=== PATIENT | female | born 1985 | race Caucasian/White ===

== ENCOUNTER 2022-06-04 09:03 | Outpatient (CLI) | payer BC, SELFPAY ==
--- NOTE | 2022-06-04 08:45 | CRLHL7_ITS ---
For Patients: As a result of the Cures Act, medical imaging exams and procedure reports are released immediately into your electronic medical record. You may view this report before your referring provider. If you have questions, please contact your health care provider. BILATERAL DIAGNOSTIC DIGITAL MAMMOGRAM WITH TOMOSYNTHESIS AND COMPUTER-AIDED DETECTION, 06/04/2022 LEFT BREAST ULTRASOUND, 06/04/2022 CLINICAL HISTORY: LEFT breast pain. COMPARISON: None TECHNIQUE: Digital BILATERAL mammogram in four projections with computer-aided detection and tomosynthesis. Real-time ultrasound imaging of LEFT breast with imaging documentation. BREAST COMPOSITION: The breasts are extremely dense, which lowers the sensitivity of mammography. FINDINGS: 3D CC/MLO mammogram submitted bilaterally. Normal fibroglandular tissue without architectural distortion or suspicious mass. No suspicious calcifications or adenopathy. Targeted LEFT breast ultrasound performed upper outer quadrant 12-3 o`clock 4 cm from the nipple. Normal dense breast tissue is present. No fibrocystic change or solid mass. IMPRESSION: Normal bilateral mammograms in normal targeted LEFT breast ultrasound. No evidence of malignancy. RECOMMENDATIONS: Clinical follow-up and age-appropriate screening mammography. BI-RADS CATEGORY 2. Benign Results and recommendations discussed with the patient. Dictated by Abhi Zuniga MD @ 06/04/2022 9:57:02 AM CRL:amrit RD/Dictated by: Abhi Zuniga MD @ 06/04/2022 9:57:00 AM (Electronically Signed)
--- NOTE | 2022-06-04 09:15 | CRLHL7_ITS ---
For Patients: As a result of the Century Cures Act, medical imaging exams and procedure reports are released immediately into your electronic medical record. You may view this report before your referring provider. If you have questions, please contact your health care provider. PLEASE SEE BILATERAL DIAGNOSTIC MAMMOGRAM OF SAME DAY FOR COMBINED REPORT. CRL:amrit RD/Dictated by: Abhi Zuniga MD @ 06/04/2022 9:55:00 AM (Electronically Signed)
== END 2022-06-04 09:04 | disposition home or self-care (01) ==
LOC: MAMMO 09:03
PROVIDERS: PCP Physician Assistant Medical; Visit Provider Physician Assistant Medical
DX: N64.4 Mastodynia (principal)
CPT/HCPCS: 76642; 77066; G0279

== ENCOUNTER 2022-12-13 10:27 | Outpatient (CLI) | payer BC, SELFPAY | END 2022-12-13 10:28 | disposition home or self-care (01) | LOC: NFLDREF 12-15 08:11 | PROVIDERS: PCP Physician Assistant Medical; Referring Provider Physician Assistant Medical; Visit Provider Physician Assistant Medical | DX: F41.1 Generalized anxiety disorder (principal); Z13.6 Encounter for screening for cardiovascular disorders; Z13.29 Encounter for screening for other suspected endocrine disorder | CPT/HCPCS: 80053; 80061; 84443 ==

== ENCOUNTER 2024-07-21 15:03 | Outpatient (CLI) | payer BC, SELFPAY | END 2024-07-21 15:04 | disposition home or self-care (01) | LOC: FRMREF 15:05 | PROVIDERS: PCP Physician Assistant Medical; Visit Provider Physician Assistant Medical | DX: F41.1 Generalized anxiety disorder (principal); Z80.41 Family history of malignant neoplasm of ovary; Z13.6 Encounter for screening for cardiovascular disorders; Z13.29 Encounter for screening for other suspected endocrine disorder | CPT/HCPCS: 80053; 80061; 84443; 86304 ==

== ENCOUNTER 2025-04-05 08:43 | Day surgery (SDC) | payer BC, SELFPAY ==
[2025-04-05] VITALS (12 sets, daily range): BP systolic 117–131; BP diastolic 72–84; PULSE 50–64; RESP 16–18; TEMP 36.2–36.6; O2SAT 97–100; BMI 22.4
[2025-04-05 09:12] LABS: Ur HCG Qualitative* Negative (Negative)
[2025-04-05] MEDS: LACTATED RINGERS 1000 ML 1,000 ML 100 ML IV ×2 (09:20→12:05)
[2025-04-05] MEDS: SODIUM CHLORIDE 0.9 % (FLUSH) 10 ML SYRINGE IVF (09:20)
[2025-04-05 09:24] LABS: Hemoglobin* 14.0 gm/dL (12.0-16.0)
[2025-04-05] MEDS: BUPIVACAINE 0.25 %/EPI 1:200K 30 ml INJECTION (11:54)
--- NOTE | 2025-04-05 12:02 | P.ANES_ITS ---
Anesthesia Charges Start Date/Time Anesthesia Start Date: 04/05/25 Anesthesia Start Time: 11:16 Stop Date/Time Anesthesia Stop Date: 04/05/25 Anesthesia Stop Time: 12:38 Coding CPT Codes CPT Codes: ANESTH SURG LOWER ABDOMEN - 83987 ([id number]) P1 - NORMAL HEALTHY PATIENT, QK - FRONT CLERK 2-4 CNCRNT ANES PROC, QX - ASPHALT HEATER TENDER SVOri W/ MED DIRECTION
--- NOTE | 2025-04-05 12:02 | W.ANESCHARGE ---
Anesthesia Charges Start Date/Time Anesthesia Start Date: 04/05/25 Anesthesia Start Time: 11:16 Stop Date/Time Anesthesia Stop Date: 04/05/25 Anesthesia Stop Time: 12:38 Coding CPT Codes CPT Codes: ANESTH SURG LOWER ABDOMEN - 88335 ([id number]) P1 - NORMAL HEALTHY PATIENT, QK - WINE MERCHANT 2-4 CNCRNT ANES PROC, QX - SHOP TEACHER SVOri W/ MED DIRECTION
[2025-04-05] MEDS: SILVER NITRATE APPLICATOR 1 EACH STICK..EA. TOPICAL (12:21)
--- NOTE | 2025-04-05 12:29 | W.PM.H&PU ---
History & Physical Update History & Physical Update H&P Reviewed and patient assessed: No changes noted H&P Updates: Ms. Chavez is seen in pre-op prior to planned laparoscopic bilateral salpingectomy, Mirena IUD exchange. No interval change to her health history or questions today. We again reviewed the risks, benefits and alternatives to the planned procedure. Written consent was re-signed. Post-procedure restrictions and expectations reviewed. Pre-op labs reviewed and are within normal limits. No perioperative antibiotics indicated.
--- NOTE | 2025-04-05 12:30 | P.GYNPRC_ITS ---
Procedure Note Time Seen by Provider: 12:30 Date of procedure: 04/05/25 Will [facility] bill your pro fee for this procedure?: Yes Pre-op diagnosis: Undesired fertility Family history of Ovarian Cancer Menstrual suppression Procedure: Laparoscopic bilateral salpingectomy Mirena IUD removal and reinsertion Anesthesia: GETA Complications: None Surgeon: Maryjane Connell MD Estimated blood loss (mL): 10 IV fluids (mL): 1,200 Urine Output (mL): 150 Pathology: specimen obtained, sent to pathology Condition: stable Disposition: same day Findings: Unremarkable upper abdominal survey Normal uterus, bilateral fallopian tubes and ovaries with small suspected corpus luteum cyst on left ovary Procedure Description: Patient was taken to the operating room with IV running. She was positioned in dorsal lithotomy position with her legs fully supported in [place] stirrups. General anesthesia was administered. She was prepped and draped in the usual sterile fashion. A surgical time out was held to confirm patient and procedure. Adair catheter was inserted. Speculum was inserted to the vagina, where cervix was easily visualized and appears unremarkable. The string seen, grasped and removed with gentle traction. LocallylBiopharmacopae uterine manipulator was easily introduced to the endometrial cavity, secured to the anterior cervix. Attention was turned to the abdomen. A 12 mm infraumbilical incision was made with a scalpel and carried down to the underlying layer of fascia with the hemostat. The fascia was grasped with Hosea clamps and elevated, fascial incision made with scalpel. A curved hemostat was utilized to enter peritoneum and gently stretch fascial incision. The fascia was tagged with 0 vicryl and straights removed. Rhodes trocar was introduced to the peritoneal cavity, balloon inflated. 10mm camera inserted and high flow initiated. Pneumoperitoneum was achieved, where careful attention was paid below site of entry - no injury or bleeding noted. Upper abdominal survey was completed, revealing normal anatomy. Patient was put into Trendelenburg, pelvic survey noted normal uterus, bilateral fallopian tubes and ovaries. Two additional port sites were created, first in the left lower quadrant 2cm superior and medial to the ASIS. 5mm skin incision was made and trocar advanced under direct visualization with rotation and gentle pressure. Careful attention was paid to avoid the inferior epigastric vessels, superficial skin vasculature and the bowel on entry. Obturator removed, balloon inflated. The same procedure was completed on the right. Attention was first turned to the left fallopian tube, which was sequentially ligated and transected from the mesosalpinx using the Ligasure cautery device. We proceeded from the fimbriated end, lateral to medial, and the tube was amputated at the uterine cornua. Specimen was removed from patient's abdomen for pathologic evaluation. The same procedure was repeated on the patient's right side, and the right fallopian tube was also amputated at the cornua and removed from the patient's abdomen. Both fallopian tubes were sent for pathologic evaluation. Survey of the pelvis revealed excellent hemostasis. Laparoscopic procedure was deemed complete. The balloons of all port sites were deflated, and all ports were removed after pneumoperitoneum was released. Fascial tags were tied together. Local anesthetic (Marcaine) was infiltrated in the subcutaneous tissue at each port site, total 15cc. The skin of each port site was closed in a subcuticular fashion with 3-0 Monocryl. Surgical glue was applied above this. Speculum was reinserted, Hulka manipulator removed. Tenaculum was applied to the anterior cervix. Uterus was sounded to 7.5cm. Mirena IUD was loaded into the insertion tube in a sterile fashion, advanced to the uterine fundus and deployed. Insertion tube removed. Strings were trimmed at 3 cm in length. Tenaculum removed. Hemostasis achieved with pressure and silver nitrate. Adair catheter removed. Patient tolerated procedure well and was taken to recovery area in stable condition. EBL 10 mL, UOP 150 mL, IVF 1200 mL. Confirmed specimens sent to pathology.
--- NOTE | 2025-04-05 12:39 | P.ANES_ITS ---
Anesthesia Charges Start Date/Time Anesthesia Start Date: 04/05/25 Anesthesia Start Time: 11:16 Stop Date/Time Anesthesia Stop Date: 04/05/25 Anesthesia Stop Time: 12:38 Coding CPT Codes CPT Codes: ANESTH SURG LOWER ABDOMEN - 89314 ([id number]) P1 - NORMAL HEALTHY PATIENT, QK - HORSE RACETRACK MANAGER 2-4 CNCRNT ANES PROC, QX - ROADWAY TECHNICIAN SVOri W/ MED DIRECTION
--- NOTE | 2025-04-05 12:39 | W.ANESCHARGE ---
Anesthesia Charges Start Date/Time Anesthesia Start Date: 04/05/25 Anesthesia Start Time: 11:16 Stop Date/Time Anesthesia Stop Date: 04/05/25 Anesthesia Stop Time: 12:38 Coding CPT Codes CPT Codes: ANESTH SURG LOWER ABDOMEN - 85127 ([id number]) P1 - NORMAL HEALTHY PATIENT, QK - SUTURE GAUGER 2-4 CNCRNT ANES PROC, QX - PRACTICAL NURSING TEACHER SVOri W/ MED DIRECTION
--- NOTE | 2025-04-05 12:42 | SUR.PHASEI ---
Patient awake and resting comfortably. Denies pain or nause and states she is warm when asked.
--- NOTE | 2025-04-05 13:02 | SUR.PHASEI ---
Patient meets anesthesia discharge criteria from PACU.
== END 2025-04-05 14:16 | disposition home or self-care (01) ==
LOC: OR 08:46
PROVIDERS: PCP Physician Assistant Medical; Visit Provider Obstetrics & Gynecology
PROC: (CPT 58661; principal; 2025-04-05 10:15)
DX: Z30.2 Encounter for sterilization (principal); Z80.41 Family history of malignant neoplasm of ovary; Z30.433 Encounter for removal and reinsertion of intrauterine contraceptive device; N94.89 Other specified conditions associated with female genital organs and menstrual cycle
CPT/HCPCS: 58661; 58300; 58301; 00840; 36415; 81025; 85018; 86850; 86900; 86901; 88302; A9270; J1100; J1171; J1885; J2405; J2704; J2710; J3010; J3490; J7120; J7298